=== PATIENT | male | born 1950 | race Caucasian/White ===

== ENCOUNTER 2018-02-02 07:57 | Emergency (ER) | payer MEDICARE, MEDICAID ==
[~2018-02-02] VITALS: Ht 172.7 cm; Wt 68.2 kg
[~2018-02-02 07:57] MED LIST: AEROCHAMBER Z-S1 DEV INH; ATARAX 25MG25 MG/TAB PO; FLOMAX 0.40.4 MG/CAP PO; NO HOME MEDICATIONS; PROAIR HFA0.09 MG/AC IH; PROSCAR 5MG5 MG PO; ZOCOR 20MG20 MG PO
[2018-02-02 08:01] VITALS: BP 102/59; PULSE 69; TEMP 97.4
[2018-02-02] MEDS ORDERED: ZOCOR 20MG20 MG PO (08:32)
[2018-02-02] MEDS ORDERED: ATARAX 25MG25 MG/TAB PO (08:33)
[2018-02-03] MEDS ORDERED: OMNICEF 300MG300 MG PO (11:43)
== END 2018-02-02 09:41 | disposition home or self-care (01) ==
LOC: COL.ER 07:57
DX: S63.274A Dislocation of unspecified interphalangeal joint of right ring finger, initial encounter (principal); F79 Unspecified intellectual disabilities; Z86.73 Personal history of transient ischemic attack (TIA), and cerebral infarction without residual deficits; X58.XXXA Exposure to other specified factors, initial encounter

== ENCOUNTER 2018-02-03 08:59 | Emergency (ER) | payer MEDICARE, MEDICAID ==
[~2018-02-03] VITALS: Ht 165.1 cm; Wt 63.6 kg
[2018-02-03 09:53] LABS: BASO % 0.2 % (0.0-2.0); EOS % 0.1 % (0-4.0); GRAN # 14.5 (1.4-6.5); GRAN % 88.7 % (42.2-75.2); HEMATOCRIT 40.8 % (42.0-52.0); HEMOGLOBIN 13.8 g/dl (13.5-18.0); LYMPH # 0.8 (1.2-3.4); LYMPH % 4.6 % (20.0-51.0); MEAN CELL VOLUME 96 fl (80.0-100.0); MEAN CORPUSCULAR HEMOGLOBIN 32 pg (27.0-31.0); MEAN CORPUSCULAR HGB CONC 34 g/dl (33.0-37.0); MEAN PLATELET VOLUME 9.4 fl (7.4-10.4); MONO # 0.9 (0.1-0.6); MONO % 5.8 % (1.7-9.3); PLATELET COUNT 181 K/mm3 (130-400); RED BLOOD COUNT 4.27 M/mm3 (4.20-5.60); REDCELL DISTRIBUTION WIDTH-CV 12.1 % (11.5-14.5)
[2018-02-03 09:58] LABS: ALBUMIN 4.1 gm/dL (3.5-5.0); BILIRUBIN,TOTAL 0.6 mg/dL (0.0-1.0); CALCIUM 8.8 mg/dL (8.4-10.2); CREATININE, serum 0.75 mg/dL (0.66-1.25); POTASSIUM 4.6 mmol/L (3.4-5.0); TOTAL PROTEIN 7.5 gm/dL (6.4-8.2)
[2018-02-03 11:05] LABS: PH 6 (5-8); SQUAMOUS EPITHELIAL None Seen /hpf; URINE APPEARANCE Clear; URINE BACTERIA None Seen /hpf; URINE BILIRUBIN Negative (NEGATIVE); URINE BLOOD Negative (NEGATIVE); URINE COLOR Yellow; URINE GLUCOSE Negative (NEGATIVE); URINE KETONE Negative (NEGATIVE); URINE LEUKOCYTE ESTERASE Negative (NEGATIVE); URINE NITRATE Negative (NEGATIVE); URINE PROTEIN(semi-quant) Negative (NEGATIVE); URINE RBC 0-2 /hpf; URINE UROBILINOGEN Negative (NEGATIVE); URINE WBC None Seen /hpf
[2018-02-03 11:15] LABS: COLLECTION METHOD CLEAN CATCH
[2018-02-03] MEDS ORDERED: OMNICEF 300MG300 MG PO (11:43)
[2018-02-03 11:58] VITALS: BP 124/64; PULSE 66; TEMP 98
== END 2018-02-03 11:58 | disposition home or self-care (01) ==
LOC: COL.ER 08:59
PROVIDERS: Nurse Practitioner Primary Care
DX: S22.49XA Multiple fractures of ribs, unspecified side, initial encounter for closed fracture (principal); S01.01XA Laceration without foreign body of scalp, initial encounter; W19.XXXA Unspecified fall, initial encounter; Y92.009 Unspecified place in unspecified non-institutional (private) residence as the place of occurrence of the external cause
CPT/HCPCS: Q9967

== ENCOUNTER 2021-09-25 22:16 | Emergency (ER) | payer MEDICARE, MEDICAID ==
[~2021-09-25] VITALS: Ht 175.3 cm; Wt 77.3 kg
[~2021-09-25 22:16] MED LIST changes: +OMNICEF 300MG300 MG PO
[2021-09-25 22:34] VITALS: TEMP 99.1
[2021-09-26] MEDS ORDERED: OMNICEF 300MG300 MG PO (00:35)
[2021-09-26 00:42] VITALS: BP 122/81; PULSE 71
== END 2021-09-26 00:42 | disposition home or self-care (01) ==
LOC: COL.ER 22:16
DX: R22.0 Localized swelling, mass and lump, head (principal); J34.1 Cyst and mucocele of nose and nasal sinus; K02.9 Dental caries, unspecified; Z86.69 Personal history of other diseases of the nervous system and sense organs; W19.XXXA Unspecified fall, initial encounter
CPT/HCPCS: J1630